=== PATIENT | female | born 1940 | race Two or more races ===

== ENCOUNTER 2024-08-15 16:16 | Emergency (ER) | payer MEDICARE ==
[~2024-08-15] VITALS: Ht 167.6 cm; Wt 65.8 kg
[2024-08-15] MEDS ORDERED: IBUP-1955 PO (18:35)
[2024-08-15] MEDS ORDERED: LIDO30AD10 TP (18:35)
[2024-08-15] MEDS ORDERED: LIDOCAINE 5% (PATCH) 1 EA PATCH TP ONE (18:44)
[2024-08-15] MEDS ORDERED: IBUPROFEN 600 MG TABLET ONE (18:44)
[2024-08-15] MEDS: IBUPROFEN 600 MG TABLET PO ONE (18:51)
[2024-08-15] MEDS: LIDOCAINE 5% (PATCH) 1 EA PATCH TP STA (18:51)
[2024-08-15 18:53] VITALS: BP 155/72; TEMP 98.2; O2SAT 98
== END 2024-08-15 19:32 | disposition home or self-care (01) ==
LOC: ER 16:35
DX: S16.1XXA Strain of muscle, fascia and tendon at neck level, initial encounter (principal); M19.90 Unspecified osteoarthritis, unspecified site; M47.812 Spondylosis without myelopathy or radiculopathy, cervical region; M48.02 Spinal stenosis, cervical region; S13.4XXA Sprain of ligaments of cervical spine, initial encounter; V43.62XA Car passenger injured in collision with other type car in traffic accident, initial encounter; Y93.89 Activity, other specified; Y92.410 Unspecified street and highway as the place of occurrence of the external cause; Y99.8 Other external cause status
CPT/HCPCS: 71045-TC; 72125-TC; 73030-TC